=== PATIENT | male | born 1975 | race Caucasian/White ===

== ENCOUNTER 2017-08-03 12:38 | Emergency (ER) | payer BC, OTHER ==
[2017-08-03] MEDS ORDERED: LET GEL TOPICAL 1 EA SYR TP ONE (13:28)
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
[2017-08-03] MEDS ORDERED: KETOROLAC 30 MG/1 ML SDV IVP ONE (13:58)
[2017-08-03] MEDS ORDERED: fentaNYL 100 MCG/2 ML INJ IVP ONE (13:58)
[2017-08-03] MEDS ORDERED: OXYCODONE/APAP 5/325 TAB PO ONE (14:34)
[2017-08-03 14:52] VITALS: BP 122/81
== END 2017-08-03 14:50 | disposition home or self-care (01) ==
DX: S52.572A Other intraarticular fracture of lower end of left radius, initial encounter for closed fracture (principal); V18.9XXA Unspecified pedal cyclist injured in noncollision transport accident in traffic accident, initial encounter; Y92.410 Unspecified street and highway as the place of occurrence of the external cause; Y99.8 Other external cause status; Y93.89 Activity, other specified
CPT/HCPCS: A4565

== ENCOUNTER 2017-08-04 14:11 | Emergency (ER) | payer BC, OTHER ==
--- NOTE | 2017-08-04 15:14 | EDPHY ---
H & P Stated Complaint: pain control Time Seen by Provider: 08/04/17 15:14 HPI/ROS: HPI: This is a 41-year-old male who presents with Chief Complaint: Request for pain medication Location:left wrist Quality: pain Duration: 2 days Signs and Symptoms:+ pain, no swelling, no radiation, no weakness, no tingling Timing: Constant, worse with movement Severity: 8 out of 10 Context: Patient is right-hand dominant and was seen in this emergency room yesterday and diagnosed with a left distal radial fracture. He was splinted with orthopedic follow-up on Saturday. He was given [place] #13. He reports that he has been taking 2 tablets every 4 hr. My calculation shows that he is using them as prescribed. He is requesting more pain medication. He is currently wearing his sling and splint. Modifying Factors: None Comment: ROS: see HPI Constitutional: No fever, no chills, no weight loss Eyes: No blurred vision Respiratory: No shortness of breath, no cough Cardiovascular: No chest pain Gastrointestinal: No nausea, no vomiting, no diarrhea Genitourinary: No dysuria Extremities: No myalgias Neurologic: No weakness, no numbness Skin: No rashes Hematologic: No bruising, no bleeding MEDICAL/SURGICAL/SOCIAL HISTORY: Medical history: Generally healthy. Does not take any regular medications. Surgical history: Denies Social history: Nonsmoker. Family history noncontributory. CONSTITUTIONAL: awake and alert, no obvious distress HEENT: Atraumatic and normocephalic, PERRL, EOMI. Nares patent; no rhinorrhea; no nasal mucosal edema. Tympanic membranes clear. Oropharynx clear, no exudate and moist pink mucosa. Airway patent. No lymphadenopathy. No meningismus. Cardiovascular: Normal S1/S2, regular rate, regular rhythm, without murmur rub or gallop. PULMONARY/CHEST: Symmetrical and nontender. Clear to auscultation bilaterally. Good air movement. No accessory muscle usage. ABDOMEN: Soft, nondistended, nontender, no rebound, no guarding, no peritoneal signs, no masses or organomegaly. No CVAT. EXTREMITIES: 2/2 pulses, strength 5/5, right lower extremity is in a splint and sling; able to wiggle fingers without any problem; good light touch sensation. no deformities, no clubbing, no cyanosis or edema. NEUROLOGICAL: no focal neuro deficits. GCS 15. SKIN: Warm and dry, no erythema. no rash. Good capillary refill. Source: Patient Exam Limitations: No limitations - Personal History Current Tetanus/Diphtheria Vaccine: Unsure Current Tetanus Diphtheria and Acellular Pertussis (TDAP): Unsure - Medical/Surgical History Hx Asthma: No Hx Chronic Respiratory Disease: No Hx Diabetes: No Hx Cardiac Disease: No Hx Renal Disease: No Hx Cirrhosis: No Hx Alcoholism: No Hx HIV/AIDS: No Hx Splenectomy or Spleen Trauma: No Other PMH: denies - Social History Smoking Status: Never smoked Constitutional: Initial Vital Signs Temperature (C) 36.8 C 08/04/17 14:26 Heart Rate 65 08/04/17 14:26 Respiratory Rate 16 08/04/17 14:26 Blood Pressure 135/78 H 08/04/17 14:26 O2 Sat (%) 95 08/04/17 14:26 O2 Delivery Mode Room Air Allergies/Adverse Reactions: No Known Allergies Allergy (Unverified 08/04/17 14:26) Home Medications: Medication Instructions Recorded Hydrocodone/APAP 5/325 [[place] 1 - 2 tab PO Q4 #13 tab 08/03/17 5/325 (RX)] Ondansetron Odt [Zofran Odt 4 mg 4 mg PO Q4PRN PRN #7 tab 08/03/17 (*)] Hydrocodone/APAP 5/325 [[place] 1 - 2 tab PO Q6H PRN #12 tab 08/04/17 5/325 (*)] Medical Decision Making ED Course/Re-evaluation: No signs of neurovascular compromise/tenting of skin/compartment syndrome/ extremities and joints examined above and below area of concern and are neurovascularly intact. Patient is using medication as prescribed. I did refill his medication and dispense #12. Patient has Ortho follow-up appointment on Saturday. This patient was seen under the supervision of my secondary supervising physician. I evaluated care for this patient independently. Discussed this patient with Dr. Fernandez who did not see the patient. Differential Diagnosis: Differential diagnosis includes but is not limited to radial fracture Departure - Departure Disposition: Home, Routine, Self-Care Clinical Impression: Medication refill Closed fracture of left distal radius Qualifiers: Encounter type: initial encounter Fracture morphology: unspecified fracture morphology Qualified Code(s): S52.502A - Unspecified fracture of the lower end of left radius, initial encounter for closed fracture Condition: Good Instructions: Wrist Fracture in Adults (ED) Additional Instructions: Please keep follow-up appointment with Dr. Parker on Saturday as previously scheduled. Take Tylenol 650 mg every 4 hours and/or Ibuprofen 600 mg every 8 hours with food as needed for pain. Use [place] every 6 hours as needed for severe/break through pain. Apply ice for 30 minutes at a time; 2-3 times per day for the next 1-2 days. Referrals: Manjit Murillo MD [Medical Doctor] - As per Instructions Prescriptions: Hydrocodone/APAP 5/325 [[place] 5/325 (*)] 1 - 2 tab PO Q6H PRN #12 tab PRN Reason: Pain, Severe
[2017-08-04 15:46] VITALS: BP 122/87
== END 2017-08-04 15:46 | disposition home or self-care (01) ==
DX: Z76.0 Encounter for issue of repeat prescription (principal); S52.502D Unspecified fracture of the lower end of left radius, subsequent encounter for closed fracture with routine healing; X58.XXXD Exposure to other specified factors, subsequent encounter